=== PATIENT | male | born 2000 | race Caucasian/White ===

== ENCOUNTER 2021-03-03 17:22 | Emergency (ER) | payer BC ==
[2021-03-03] MEDS ORDERED: methylPREDNISolone Sodium Succinate 125 MG/2 ML SDV IM STA (17:26)
--- NOTE | 2021-03-03 17:49 | EDM.PDOC ---
ED HPI GENERAL MEDICAL PROBLEM - General Stated Complaint: STUNG BY BEE Time Seen by Provider: 03/03/21 17:25 Source of Information: Reports: Patient History Limitations: Reports: No Limitations - History of Present Illness INITIAL COMMENTS - FREE TEXT/NARRATIVE: Patient presented to the ED because of a bee sting on his uvula. There is no associated dyspnea, drooling, difficulty in swallowing and is able to talk without any difficulty. - Related Data Allergies Allergy/AdvReac Type Severity Reaction Status Date / Time Sulfa (Sulfonamide Allergy Hives Verified 03/03/21 17:37 Antibiotics) Home Meds: Home Meds NK [No Known Home Meds] 03/03/21 [History] ED ROS ENT - Review of Systems Review Of Systems: See Below Constitutional: Reports: No Symptoms HEENT: Reports: Other (pain on uvula) Respiratory: Reports: No Symptoms Cardiovascular: Reports: No Symptoms Endocrine: Reports: No Symptoms GI/Abdominal: Reports: No Symptoms : Reports: No Symptoms Musculoskeletal: Reports: No Symptoms Skin: Reports: No Symptoms Neurological: Reports: No Symptoms Psychiatric: Reports: No Symptoms ED EXAM, ENT - Physical Exam Exam: See Below Exam Limited By: No Limitations General Appearance: Alert, No Apparent Distress Ears: Normal External Exam, Normal Canal, Hearing Grossly Normal, Normal TMs Nose: Normal Inspection, Normal Mucousa, No Blood Mouth/Throat: Normal Inspection, Normal Gums, Normal Lips, Normal Oropharynx, Normal Teeth Head: Atraumatic, Normocephalic Neck: Normal Inspection, Supple, Non-Tender, Full Range of Motion Respiratory/Chest: No Respiratory Distress, Lungs Clear, Normal Breath Sounds, No Accessory Muscle Use, Chest Non-Tender Cardiovascular: Normal Peripheral Pulses, Regular Rate, Rhythm, No Edema, No Gallop, No JVD, No Murmur, No Rub GI/Abdominal: Normal Bowel Sounds, Soft, Non-Tender, No Organomegaly, No Distention, No Abnormal Bruit Rectal (Males) Exam: Normal Exam, Normal Rectal Tone Back: Normal Inspection, Full Range of Motion Extremities: Normal Inspection, Normal Range of Motion Course - Vital Signs Text/Narrative:: Solumedrol 125 mg PO x1 - Orders/Labs/Meds Meds: Medications Discontinued Medications Generic Name Dose Route Start Last Admin Trade Name Freq PRN Reason Stop Dose Admin Methylprednisolone Sodium Succinate 125 mg 03/03/21 17:26 03/03/21 17:40 Methylprednisolone Sodium Succinate 125 Mg/2 Ml Sdv IM 03/03/21 17:27 125 mg NOW STA Administration Departure - Departure Time of Disposition: 16:00 Disposition: Home, Self-Care 01 Condition: Good Clinical Impression: Uvular edema - Discharge Information Instructions: Uvulitis Additional Instructions: Please read discharge instructions on uvular edema Drink ice water as frequent as your can. Follow up as needed
== END 2021-03-03 18:02 | disposition home or self-care (01) ==
LOC: FB.ED 17:22
DX: K13.79 Other lesions of oral mucosa (principal); Z88.2 Allergy status to sulfonamides
CPT/HCPCS: 96372; 99282; J2930